=== PATIENT | male | born 1980 | race African-American/Black ===

== ENCOUNTER 2020-10-06 17:29 | Emergency (ER) | payer MEDICAID ==
[~2020-10-06] VITALS: Ht 182.9 cm; Wt 122.5 kg
[2020-10-06 17:33] VITALS: BP 192/109; Ht 182.9 cm; Wt 122.5 kg
[2020-10-06] MEDS ORDERED: HYDROCHLOROTHIA25 MG PO (17:45)
== END 2020-10-06 18:05 ==
LOC: ED 17:29
DX: I10 Essential (primary) hypertension (principal); Z13.9 Encounter for screening, unspecified

== ENCOUNTER 2020-10-06 17:29 | Emergency (ER) | payer OTHER ==
[2020-10-06] MEDS ORDERED: HYDROCHLOROTHIA25 MG PO (17:45)
== END 2020-10-06 18:05 ==
LOC: ED 17:29
DX: Z02.89 Encounter for other administrative examinations (principal)